=== PATIENT | male | born 1990 | race Two or more races ===

== ENCOUNTER 2018-06-15 18:11 | Emergency (ER) | payer SELFPAY ==
[~2018-06-15] VITALS: Ht 177.8 cm; Wt 104.3 kg
[2018-06-15] MEDS: fentaNYL CITRATE 100 MCG/2 ML VL IV ONE (21:05)
[2018-06-15] MEDS: ONDANSETRON HCL 4 MG/2 ML VIAL IV ONE (21:11)
[2018-06-15] MEDS: KETOROLAC TROMETH 30 MG/ML 1ML VIAL IV ONE (21:11)
[2018-06-15 21:40] VITALS: BP 112/78
== END 2018-06-15 22:48 | disposition home or self-care (01) ==
LOC: ER 18:11
CPT/HCPCS: 73590 ×2; 96374 ×2; 96375 ×2; 99283; J1885 ×2; J2405 ×2; J3010